=== PATIENT | male | born 1975 | race Two or more races ===

== ENCOUNTER 2017-02-02 20:30 | Emergency (ER) | END 2017-02-02 22:01 | disposition left against medical advice (07) | LOC: ER 20:30 | DX: Z53.21 Procedure and treatment not carried out due to patient leaving prior to being seen by health care provider (principal) ==

== ENCOUNTER 2017-03-03 23:18 | Emergency (ER) | payer SELFPAY ==
[2017-03-03 23:29] VITALS: BP 132/76
[2017-03-04] MEDS ORDERED: KETOROLAC TROMETHAMINE 60 MG/2 ML SDV IM ONE (02:51)
[2017-03-04] MEDS ORDERED: HYDROCODONE/ACETAMINOPHEN 5-325 MG 6 TAB/DSPK PO PRN ×2 (02:52)
--- NOTE | 2017-03-04 02:59 | ER Document Report ---
HPI - HPI Patient complains to provider of: arm and hand pain Pain Level: 5 Context: Patient is a 41 year old male that comes to the ED for chief complaint of pain in the left arm and hand, states that he gets tingling and numbness in the fingers of the left hand. 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 He states he cannot sleep because of the pain tonight. He denies any daily meds or any PMH. He denies any other symptoms other than some soreness of his right hand and arm as well. - CONSTITUTIONAL Constitutional: DENIES: Fever, Chills - EENT EENT: DENIES: Sore Throat, Ear Pain, Nasal Drainage-Clear, Nasal Drainage- Purulent, Congestion, Eye problems - NEURO Neurology: DENIES: Headache, Weakness, Vision blurred, Dizzinesss / Vertigo - CARDIOVASCULAR Cardiovascular: DENIES: Chest pain - RESPIRATORY Respiratory: DENIES: Trouble Breathing, Coughing - GASTROINTESTINAL Gastrointestinal: DENIES: Abdominal Pain, Nausea, Patient vomiting, Diarrhea, Constipation, Black / Bloody Stools - URINARY Urinary: DENIES: Dysuria, Urgency - MUSCULOSKELETAL Musculoskeletal: REPORTS: Extremity pain - L arm. DENIES: Back Pain, Neck Pain , Swelling - DERM Skin Color: Normal Skin Problems: None - NURSING COMMENTS Comment: Pt presents with c/o L arm pain. States that since he started a new job , it has started hurting. 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 Has pain in hand, wrist and forearm. Movement limited due to pain. Past Medical History - General Information source: Patient - Social History Smoking Status: Never Smoker Frequency of alcohol use: None Drug Abuse: None Lives with: Family Family History: Reviewed & Not Pertinent Patient has suicidal ideation: No Patient has homicidal ideation: No - Medical History Medical History: Negative Renal/ Medical History: Denies: Hx Peritoneal Dialysis Surgical Hx: Negative - Immunizations Immunizations up to date: Yes Hx Diphtheria, Pertussis, Tetanus Vaccination: Yes Vertical Provider Document - CONSTITUTIONAL General Appearance: WD/WN, No Apparent Distress, Other - patient winces when moving his arms or grasping objects, otherwise is in no distress - INFECTION CONTROL TRAVEL OUTSIDE OF THE [place] IN LAST 30 DAYS: No - HEENT HEENT: Atraumatic, Normocephalic - RESPIRATORY Respiratory: Breath Sounds Normal, No Respiratory Distress O2 Sat by Pulse Oximetry: 96 - CARDIOVASCULAR Cardiovascular: Regular Rate, Regular Rhythm - GI/ABDOMEN Gastrointestinal: Abdomen Soft, Abdomen Non-Tender - BACK Back: Normal Inspection - MUSCULOSKELETAL/EXTREMETIES Musculoskeletal/Extremeties: Tender - Patient with soft tissue swelling over the thenar aspect of both hands, tenderness over the carpal tunnel area, tenderness in the cubital tunnel on the left side, positive Phalen test. Range of motion is still present in her wrists, elbows, fingers. Normal capillary refill, radial pulse, sensation distally is intact. Course - Re-evaluation Re-evalutation: Patient with soft tissue swelling, evidence of carpal tunnel and cubital tunnel syndrome on the left with associated numbness and discomfort. Given a cock-up splint for the wrist, given instructions for his cubital tunnel syndrome, orthopedic referral placed, I did provide patient with anti-inflammatory and also some medication if he cannot sleep because of the pain. Also giving work release. Patient states understanding and agreement. - Vital Signs Vital signs: Temp Pulse Resp BP Pulse Ox 98.1 F 75 16 132/76 H 96 03/03/17 23:21 03/03/17 23:21 03/03/17 23:21 03/03/17 23:21 03/03/17 23:21 Procedures - Immobilization left wrist Pre-Proc Neuro Vasc Exam: Normal Immobilizer type: Cock-up Performed by: RN Post-Proc Neuro Vasc Exam: Normal Alignment checked and good: Yes Discharge - Discharge Clinical Impression: Left arm pain, Left wrist pain Condition: Stable Disposition: HOME, SELF-CARE Additional Instructions: Examination is consistent with both carpal tunnel and cubital tunnel syndrome, inflammation of the joints leading to pain and numbness. Apply ice to the wrist and elbow. I recommend using the wrist brace, avoid leaning on her elbows, avoid long periods of flexing your elbow, avoid crossing your arms when sitting. Take the prescribed medications as directed, take the [place] if needed at night of the sleep temporarily, follow-up with the orthopedics referral for additional treatment. You may also have to consider a different situation because the repetitive motion you are performing currently is causing this. Return to emergency department for any concerning or worsening symptoms including redness, swelling, etc. Prescriptions: Hydrocodone/Acetaminophen [[place] 5-325 mg Tablet] 1 - 2 tab PO ASDIR #10 tablet Naproxen 500 mg PO BID #20 tablet Forms: Parent Work Note, Return to Work Referrals: JUANA FAITH DO [ACTIVE STAFF] - Follow up as needed
== END 2017-03-04 03:12 | disposition home or self-care (01) ==
LOC: ER 23:18
DX: M79.642 Pain in left hand (principal); M79.602 Pain in left arm
CPT/HCPCS: 99283; 96374; L3984; J1885